=== PATIENT | male | born 1965 | race Caucasian/White ===

== ENCOUNTER → 2018-01-31 | Outpatient (CLI) | payer BC | END | disposition home or self-care (01) | LOC: PNCL 07:36 | DX: M47.897 Other spondylosis, lumbosacral region (principal); M47.896 Other spondylosis, lumbar region | CPT/HCPCS: 99212 ==

== ENCOUNTER → 2018-02-14 | Outpatient (CLI) | payer BC ==
[~2018-02-14] MED LIST: BUPIVACAINE MPF 0.25% 10 ML VIAL.; IOHEXOL 180 MG/ML 10 ML VIAL.; methylPREDNISolone ACETATE 40 MG/ML VIAL.; methylPREDNISolone ACETATE 80 MG/ML VIAL.
== END | disposition home or self-care (01) ==
LOC: PNCL 07:55
DX: M47.817 Spondylosis without myelopathy or radiculopathy, lumbosacral region (principal)
CPT/HCPCS: 64493; 64494; J1030; J1040; J3490; Q9965

== ENCOUNTER → 2018-03-02 | Outpatient (CLI) | payer BC ==
[~2018-03-02] MED LIST changes: -IOHEXOL 180 MG/ML 10 ML VIAL.; +LIDOCAINE 1% PF 2 ML VIAL.; +LIDOCAINE 2% PF Vial for OR 5 ML VIAL.
== END | disposition home or self-care (01) ==
LOC: PNCL 12:47
DX: M47.817 Spondylosis without myelopathy or radiculopathy, lumbosacral region (principal)
CPT/HCPCS: 64635; 64636; J1030; J1040; J3490

== ENCOUNTER → 2018-05-03 | Outpatient (CLI) | payer BC ==
[~2018-05-03] MED LIST changes: +IOHEXOL 180 MG/ML 10 ML VIAL.; -LIDOCAINE 2% PF Vial for OR 5 ML VIAL.
== END | disposition home or self-care (01) ==
LOC: PNCL 14:15
DX: M47.817 Spondylosis without myelopathy or radiculopathy, lumbosacral region (principal)
CPT/HCPCS: 64493; 64494; J1030; J1040; J3490; Q9965